=== PATIENT | female | born 1985 | race Caucasian/White ===

== ENCOUNTER → 2020-06-04 14:22 | Outpatient (CLI) | payer OTHER, SELFPAY ==
[2020-06-04 16:55] LABS: HCG Quantitative /Beta subunit 14995 mIU/mL
== END ==
PROVIDERS: Referring Provider Obstetrics & Gynecology; Visit Provider Obstetrics & Gynecology
DX: Z34.90 Encounter for supervision of normal pregnancy, unspecified, unspecified trimester (principal)
CPT/HCPCS: 36415; 84702

== ENCOUNTER → 2020-06-06 16:40 | Outpatient (CLI) | payer OTHER, SELFPAY ==
[2020-06-06 18:27] LABS: HCG Quantitative /Beta subunit 26652 mIU/mL
== END ==
PROVIDERS: Referring Provider Obstetrics & Gynecology; Visit Provider Obstetrics & Gynecology
DX: Z34.90 Encounter for supervision of normal pregnancy, unspecified, unspecified trimester (principal)
CPT/HCPCS: 36415; 84702

== ENCOUNTER → 2020-06-18 14:34 | Outpatient (CLI) | payer OTHER, SELFPAY ==
[2020-06-18 15:23] LABS: Add Manual Diff / Slide Review NO; Basophils Absolute Auto 0 /uL (0-100); Basophils Percent Auto 0.4 % (0-2); Eosinophils Absolute Auto 100 /uL (0-450); Eosinophils Percent Auto 1.4 % (2-4); Hematocrit 39.2 % (36-46); Hemoglobin 13.1 g/dL (12.0-16.0); Lymphocytes Absolute Auto 1400 /uL (1100-4500); Lymphocytes Percent Auto 18.5 % (25-40); Mean Corpuscular HGB Conc 33.4 % (30-36); Mean Corpuscular Hemoglobin 31.6 PG (26-34); Mean Corpuscular Volume 94.7 fL (80-100); Monocytes Absolute Auto 400 /uL (0-900); Monocytes Percent Auto 4.6 % (3-14); Neutrophils Absolute Auto 5700 /uL (1500-7000); Neutrophils Percent Auto 75.1 % (50-75); Platelet Count 152 X10^3/uL (150-400); Red Blood Cell Count 4.14 X10^6/uL (4.0-5.2); Red Cell Distribution Width 13.8 % (11.6-14.8); White Blood Cell Count 7.6 X10^3/uL (4.5-11.0)
[2020-06-18 15:44] LABS: Appearance Urine UA CLEAR; Bilirubin Urine UA NEGATIVE (NEGATIVE); Color Urine UA YELLOW; Glucose Urine UA NEGATIVE (Negative); Ketones Urine UA NEGATIVE (NEGATIVE); Leukocyte Esterase Urine UA NEGATIVE (NEGATIVE); Nitrite Urine UA NEGATIVE (Negative); Occult Blood Urine UA 2+ (Negative); Protein Urine UA NEGATIVE (Negative); Specific Gravity Urine UA 1.025 (1.000-1.035); Urobilinogen Urine UA 0.2 E.U./dL (0.2)
[2020-06-18 15:55] LABS: pH Urine UA 5.5 (4.5-8.0)
[2020-06-18 15:56] LABS: Bacteria Urine None Seen; WBC Urine None Seen (0-5/HPF)
[2020-06-18 16:04] LABS: Culture Indicated Urine Cult Not Indicated; RBC Urine 1-5/HPF (0-5/HPF); Squamous Epithelial Cell Urine 5-10 /HPF (0-5/HPF)
[2020-06-18 16:58] LABS: HIV 1 & 2 Ab/Ag 4th Gen Combo NEGATIVE (NEGATIVE); Hep C Virus Ab w/Reflex Quant NEGATIVE s/c (NEGATIVE); Hepatitis B Surface Antigen NEGATIVE s/c (NEGATIVE); Rubella Antibody IgG 10.7 IU/mL (>15)
[2020-06-19 04:36] LABS: RPR Screen Non Reactive (Non Reactive)
[2020-06-19 08:41] LABS: Varicella IgG Antibody 793 index (Immune >165)
== END ==
PROVIDERS: Referring Provider Obstetrics & Gynecology; Visit Provider Obstetrics & Gynecology
DX: Z34.91 Encounter for supervision of normal pregnancy, unspecified, first trimester (principal)
CPT/HCPCS: 36415; 80055; 81003; 81015; 86787; 86803; 86850; 86900; 86901; 87077; 87086; 87389

== ENCOUNTER → 2020-09-10 15:42 | Outpatient (CLI) | payer OTHER, SELFPAY ==
--- NOTE | 2020-09-10 15:43 | DI.US.S_ITS ---
PROCEDURE: US OB >= 14 WEEKS FETUS INDICATIONS: Anatomy scan OUTSIDE/PRIOR DATING DATA: Last menstrual period (LMP): April 17, 2020. LMP-based estimated date of delivery (KEMI): January 23, 2020. First dating scan (date and location): June 04, 2020. Estimated date of delivery (KEMI) from first dating scan: January 27, 2021. TECHNIQUE: Real-time scanning was performed of the fetus, with image documentation and biometric measurements. Endovaginal scanning: Perform COMPARISON: None. FINDINGS: General: A single living intrauterine gestation is present. Presentation: Breech Placenta: Placental position is anterior, without previa. Amniotic fluid index: 13.4 cm, normal range is 5-24 cm. heart rate: 153 beats per minute. Maternal cervical canal: Closed and 4.9 cm long. Normal lower limit is 2.5 cm. biometrics: Biparietal diameter: 19 weeks 3 days Head circumference: 19 weeks 3 days Abdominal circumference: 20 weeks 2 days Femur length: 20 weeks 3 days Estimated gestational age from initial scan: 20 weeks 1 day. Composite gestational age from present scan: 19 weeks 6 days. Estimated weight and percentile: 340 grams; 50th percentile Measurement variability for biometric dating: +/- 7 days from 14 weeks to 15 weeks 6 days gestation, +/- 10 days from 16 weeks to 21 weeks 6 days gestation, +/- 2 weeks from 22 weeks to 27 weeks 6 days gestation, +/- 3 weeks for 28 weeks gestation or later. weight reference: 4500 g or EFW >90/95% is considered macrosomia or large for gestational age. EFW <10% is small for gestational age. EFW 5% or less is considered intra-uterine growth restriction. Anatomic survey: Neuro: Ventricles are non-dilated at less than 10 mm. Cisterna magna is normal at 3-11 mm. Cerebellum is normal in size and morphology. Nuchal skin fold: Normal at less than 6 mm between 14-21 weeks gestational age. Face: Nose and lips, facial profile are normal. Spine: No evidence for spina bifida. Heart: 4-chambered heart is present, with normal ventricular outflow tracts. Diaphragm: Diaphragm is intact. Stomach: Left-sided stomach is present. Kidneys: No hydronephrosis. Normal is less than 5 mm in 2nd trimester, less than 7 mm in 3rd trimester. Cord: 3-vessel cord has orthotopic insertion. Bladder: Normal in size. Extremities: All 4 extremities identified. IMPRESSION: 1. Single living intrauterine with appropriate interval growth. 2. Normal anatomic survey. Dictated by: Arleth Lee MD, PhD on 09/11/2020 at 15:31 Approved by: Arleth Lee MD, PhD on 09/11/2020 at 15:33
== END ==
PROVIDERS: PCP Physician Assistant; Referring Provider Physician Assistant; Visit Provider Obstetrics & Gynecology
DX: Z34.82 Encounter for supervision of other normal pregnancy, second trimester (principal); Z3A.19 19 weeks gestation of pregnancy
CPT/HCPCS: 76811

== ENCOUNTER → 2020-11-07 11:55 | Outpatient (CLI) | payer OTHER, SELFPAY ==
[2020-11-07 13:58] LABS: Hematocrit 31.8 % (36-46); Hemoglobin 10.4 g/dL (12.0-16.0)
[2020-11-07 14:12] LABS: GTT (PREG) 1 Hour PP 50gm Dose 112 mg/dL (76-139)
== END ==
PROVIDERS: PCP Physician Assistant; Referring Provider Obstetrics & Gynecology; Visit Provider Obstetrics & Gynecology
DX: Z34.82 Encounter for supervision of other normal pregnancy, second trimester (principal); Z3A.26 26 weeks gestation of pregnancy
CPT/HCPCS: 36415; 82950; 85014; 85018

== ENCOUNTER 2020-11-21 01:40 | Outpatient (CLI) | payer OTHER, SELFPAY ==
[2020-11-21 02:47] LABS: Bacteria Urine None Seen; RBC Urine None Seen (0-5/HPF); WBC Urine None Seen (0-5/HPF)
[2020-11-21 02:48] LABS: Appearance Urine UA CLEAR; Bilirubin Urine UA NEGATIVE (NEGATIVE); Color Urine UA YELLOW; Glucose Urine UA NEGATIVE (Negative); Ketones Urine UA NEGATIVE (NEGATIVE); Leukocyte Esterase Urine UA NEGATIVE (NEGATIVE); Nitrite Urine UA NEGATIVE (Negative); Occult Blood Urine UA TRACE-LYSED (Negative); Protein Urine UA NEGATIVE (Negative); Urobilinogen Urine UA 0.2 E.U./dL (0.2)
[2020-11-21 02:51] LABS: pH Urine UA 6.5 (4.5-8.0)
[2020-11-21 02:58] LABS: Culture Indicated Urine Cult Not Indicated; Squamous Epithelial Cell Urine 0-1 /HPF (0-5/HPF)
== END 2020-11-21 02:40 | disposition home or self-care (01) ==
LOC: OB 11-22 11:53
PROVIDERS: PCP Physician Assistant; Referring Provider Obstetrics & Gynecology; Visit Provider Family Medicine
DX: Z34.83 Encounter for supervision of other normal pregnancy, third trimester (principal); Z3A.30 30 weeks gestation of pregnancy
CPT/HCPCS: 59025; 81001; G0378; G0379

== ENCOUNTER → 2021-01-03 17:22 | Outpatient (CLI) | payer OTHER, SELFPAY ==
[2021-01-04 16:01] LABS: Strep Grp B PCR POS for Grp B Strep
== END ==
PROVIDERS: PCP Physician Assistant; Visit Provider Obstetrics & Gynecology
DX: Z34.83 Encounter for supervision of other normal pregnancy, third trimester (principal)
CPT/HCPCS: 87653

== ENCOUNTER → 2021-01-21 17:03 | Outpatient (CLI) | payer OTHER, SELFPAY ==
[2021-01-21 18:29] LABS: COVID19 -Nasal RAPID Negative (Negative)
== END ==
PROVIDERS: PCP Physician Assistant; Visit Provider Obstetrics & Gynecology
DX: Z01.812 Encounter for preprocedural laboratory examination (principal); Z20.822 Contact with and (suspected) exposure to COVID-19
CPT/HCPCS: 87635

== ENCOUNTER 2021-01-21 17:11 | Outpatient (CLI) | payer OTHER, SELFPAY | END 2021-01-21 17:54 | disposition home or self-care (01) | LOC: OB 01-22 08:28 | PROVIDERS: PCP Physician Assistant; Referring Provider Obstetrics & Gynecology; Visit Provider Obstetrics & Gynecology | DX: O26.893 Other specified pregnancy related conditions, third trimester (principal); N89.8 Other specified noninflammatory disorders of vagina; Z3A.39 39 weeks gestation of pregnancy; Z20.822 Contact with and (suspected) exposure to COVID-19 | CPT/HCPCS: 59025; 84112; 87635; G0378; G0379 ==

== ENCOUNTER 2021-01-23 07:07 | Inpatient (IN) | payer OTHER, SELFPAY ==
[2021-01-23 08:07] LABS: Add Manual Diff / Slide Review NO; Basophils Absolute Auto 0 /uL (0-100); Basophils Percent Auto 0.4 % (0-2); Eosinophils Absolute Auto 100 /uL (0-450); Eosinophils Percent Auto 0.8 % (2-4); Hematocrit 37.2 % (36-46); Hemoglobin 12.4 g/dL (12.0-16.0); Lymphocytes Absolute Auto 1800 /uL (1100-4500); Lymphocytes Percent Auto 20.2 % (25-40); Mean Corpuscular HGB Conc 33.3 % (30-36); Mean Corpuscular Hemoglobin 31.8 PG (26-34); Mean Corpuscular Volume 95.5 fL (80-100); Monocytes Absolute Auto 600 /uL (0-900); Neutrophils Absolute Auto 6400 /uL (1500-7000); Neutrophils Percent Auto 71.6 % (50-75); Platelet Count 129 X10^3/uL (150-400); Red Blood Cell Count 3.89 X10^6/uL (4.0-5.2); Red Cell Distribution Width 16.8 % (11.6-14.8); White Blood Cell Count 8.9 X10^3/uL (4.5-11.0)
[2021-01-23] MEDS: PENICILLIN G POTASSIUM 5,000,000 UNIT in DEXTROSE 5% IN WATER 250 ML IV (08:17)
[2021-01-23] MEDS: OXYTOCIN PREMIX 30 UNIT/500 ML PLAST..BAG IV (08:18)
[2021-01-23 09:49] VITALS: BP 108/80; PULSE 89; RESP 16; TEMP 36.2
--- NOTE | 2021-01-23 10:55 | PM.AN.REGBLK ---
Regional Block Pre-procedure Procedure: Continuous Lumbar Epidural for L&D Attending OB provider: Shiela Lacy PMH/ROS narrative: term labor/induction. No complications. Hx: No personal or family history of anesthesia problems. ASA Class: II Labs: Hct 37.2 % (36-46) 01/23/21 07:42 Plt Count 129 X10^3/uL (150-400) L 01/23/21 07:42 Medications: Current Medications Generic Name Dose Route Start Last Admin Trade Name Freq PRN Reason Stop Dose Admin Calcium Carbonate 1,000 mg 01/23/21 07:49 Calcium Carbonate 500 Mg Tab PO Q2HR PRN Dyspepsia Carboprost Tromethamine 250 mcg 01/23/21 07:49 Carboprost 250 Mcg/Ml Ampul IM Q90M PRN Bleeding Diphenhydramine HCl 25 mg 01/23/21 09:23 Diphenhydramine 50 Mg/Ml Vial IV Q10M PRN Pruritis Fentanyl 50 mcg 01/23/21 07:49 Fentanyl 100 Mcg/2 Ml Inj IV Q1H PRN Pain, Moderate (4-6) Oxytocin/Lactated Ringer's 30 unit in 500 mls @ 200 mls/hr 01/23/21 07:49 Oxytocin Premix IV CONT PRN Bleeding Protocol Oxytocin/Lactated Ringer's 30 unit in 500 mls @ 3 mls/hr 01/23/21 08:00 01/23/21 08:18 Oxytocin Premix IV 3 milliunit/min TITRATE SILVER 3 mls/hr Administration Protocol 3 MILLIUNIT/MIN Tranexamic Acid 1,000 mg/ 100 mls @ 400 mls/hr 01/23/21 07:49 Sodium Chloride IV 01/24/21 23:59 NOW PRN Bleeding Lactated Ringer's 1,000 mls @ 100 mls/hr 01/23/21 08:00 Lactated Ringers IV CONT SILVER Penicillin G Potassium 3,000,000 unit in 50 mls @ 100 mls/hr 01/23/21 12:00 Penicillin G Potassium IV Q4H SILVER FENT 2MCG/ML BUPIV 0.125% EPI 200 mcg in 100 mls @ 6 mls/hr 01/23/21 09:30 Fentanyl/Bupiv/Ns 2mcg/Ml - 0.125% EPIDURAL CONT SILVER Methylergonovine Maleate 0.2 mg 01/23/21 07:49 Methylergonovine 0.2 Mg Tablet PO Q6HR PRN Heavy Bleeding Methylergonovine Maleate 0.2 mg 01/23/21 07:49 Methylergonovine 0.2 Mg/Ml Vial IM NOW PRN Bleeding Metoclopramide HCl 10 mg 01/23/21 07:49 Metoclopramide 10 Mg/2 Ml Inj IV NOW PRN Nausea And Vomiting Misoprostol 400 mcg 01/23/21 07:49 Misoprostol 200 Mcg Tablet SL NOW PRN Bleeding Misoprostol 1,000 mcg 01/23/21 07:49 Misoprostol 200 Mcg Tablet OH NOW PRN Bleeding Misoprostol 800 mcg 01/23/21 07:49 Misoprostol 200 Mcg Tablet OH NOW PRN Bleeding Naloxone HCl 0.2 mg 01/23/21 07:49 Naloxone 0.4 Mg/Ml Vial IV Q2MIN PRN Opiate Reversal Ondansetron HCl 4 mg 01/23/21 07:49 Ondansetron 4 Mg/2 Ml Inj IV Q4HR PRN Nausea And Vomiting Oxytocin 10 unit 01/23/21 07:49 Oxytocin 10 Unit/Ml Vial IM NOW PRN Bleeding Allergies: Allergies Allergy/AdvReac Type Severity Reaction Status Date / Time No Known Drug Allergies Allergy Verified 01/21/21 16:23 Procedure Insertion date: 01/23/21 Insertion time: 10:40 Prep/Local: betadine x3 Interspace: L3-4 Patient position: sitting Needle: 18 gauge [employer] [place] (CSE: 27g Pencan through [place], clear CSF, 2mg MPF bupiv) Loss of resistance with: saline KYM at (cm): 4 Catheter placed at SKIN (cm): 9 Catheter in SPACE (cm): 5 Insertion: No CSF, No Blood, No Paresthesia with insertion, No Paresthesia with injection and No Test dose reaction Initial Medications TEST DOSE time: 10:40 TEST DOSE: 1.5% lidocaine with epinephrine 1:200k (mL): 3 Infusion INFUSION: 0.125% bupivacaine and with fentanyl 2 mcg/mL Initial rate (mL/hr): 6 Subsequent interventions: 5mL 0.25% bupiv and 50mcg fentanyl at approx 17:30 18:30 Post-procedure Anesthesia time START: 10:29 Anesthesia time END: 18:28 Post-procedure Anesthesia Assessment: Yes CV function: HR/BP stable, Yes Resp function: RR/sat/airway adequate, Yes Post-op hydration adequate, Yes Pain control adequate, Yes Nausea & vomiting absent, Yes Mental status appropriate and No Anesthesia complications
[2021-01-23] MEDS: LACTATED RINGERS 1,000 ML 100 ML IV (11:02)
[2021-01-23] MEDS: PENICILLIN G POTASSIUM 3,000,000 UNIT/50 ML FROZ.PIGGY 100 UNIT IV ×2 (11:45→15:51)
[2021-01-23] MEDS: ONDANSETRON 4 MG/2 ML INJ IV (13:20)
--- NOTE | 2021-01-23 18:57 | PM.OBHP.1 ---
OB HPI Date/Time Date of admission: 01/23/21 Date Patient Seen: 01/23/21 Time Patient Seen: 07:30 History of Present Condition Chief complaint: INDUCTION : 3 Para: 2 Estimated Date of Delivery: 01/30/21 Estimated Gestational Age (weeks): 39 Narrative: Shabana Cueto is a 35 year old female 3 para 2 at 39 weeks gestation for induction of labor History of Present care: good care, initiated at week # (7), number of visits (12) and pounds weight gain (52) Dating criteria: LMP confirmed by 1st trimester US Ultrasounds: normal 1st trimester US and normal mid trimester US Obstetrical complications: none Medical complications: none Preadmission Labs Blood type: O (+) positive -: Antibody screen: negative, GBS status: positive, HBsAG: negative, HIV: negative and RPR/VDLR: negative -: Chlamydia screen: not detected and Gonorrhea screen: not detected -: Rubella: not immune and Varicella: immune HCT: 37.2 HCAB: negative PAP: Normal Urine: Negative 1 hr GTT: 112 Prior (ies) History: 3 Evaluation Evaluation Baseline heart rate: 135 Variability: Moderate (11-25) monitor accelerations: Present monitor decelerations: Absent Cervical dilation (cm): 2 Cervical effacement (%): 80 station: -1 Laboratory results: Laboratory Tests 01/23/21 01/23/21 07:42 07:42 WBC 8.9 RBC 3.89 L Hgb 12.4 Hct 37.2 MCV 95.5 MCH 31.8 MCHC 33.3 RDW 16.8 H Plt Count 129 L Neut % (Auto) 71.6 Lymph % (Auto) 20.2 L [place] % (Auto) 7.0 Eos % (Auto) 0.8 L Baso % (Auto) 0.4 Neut # (Auto) 6400 Lymph # (Auto) 1800 [place] # (Auto) 600 Eos # (Auto) 100 Baso # (Auto) 0 Blood Type O Positive Antibody Screen Negative [facility] Medical History (Updated 08/14/20 @ 17:49 by Shiela Lacy MD) Acne (~2001) Breast lump Cholecystitis, acute (~2017) Migraines (~2005) (spontaneous vaginal delivery) (~06/17/16) (spontaneous vaginal delivery) (~05/31/18) Surgical History (Updated 06/11/20 @ 15:26 by Morena Waite RN) Anesthesia H/O laparoscopy (~2014) H/O local excision of skin lesion (~07/26/15) [place] teeth extracted (~2007) Family History (Updated 06/11/20 @ 15:07 by Morena Waite, ELIZABETH) Father Asthma Sleep apnea Hyperlipidemia Prediabetes Ulcerative colitis Mother Migraines Brother Asthma Allergies Grandmother Breast cancer Mental health problem Depression Alzheimer's disease Grandfather Hyperlipidemia Grandmother Hyperlipidemia Stroke Myocardial infarction Grandfather Psoriasis Brother No known health problems Family/Other Breast cancer Social History marital status: number of children: 2 household members: spouse and children pets and animals: Yes (X 2 small dogs) education level: college occupational status: unemployed current occupational exposures/hazards: No ashley/tenriism: Faith special ashlye needs: No Smoking Status: Never smoker second hand exposure: No alcohol intake: former substance use type: does not use Meds Home Medications and Allergies Home Medications Medication Instructions Recorded Confirmed Type ascorbic acid (vitamin C) 500 mg 500 mg PO DAILY 06/11/20 01/23/21 History capsule prenat.vits,deya,top-pvti-fhkzr 1 tab PO DAILY 06/11/20 01/23/21 History fluconazole 150 mg tablet 150 mg PO Q3D #2 tab 06/20/20 01/23/21 Rx Allergies Allergy/AdvReac Type Severity Reaction Status Date / Time No Known Drug Allergies Allergy Verified 01/21/21 16:23 Exam Vital Signs (past 8 hours): Generally: No acute distress Lungs: Clear to auscultation bilaterally Cardiovascular: Regular rate and rhythm Fundal height: 39 cm Estimated weight: 8 lb Extremities: No edema, 1+ DTRs Objective Labs Result Diagrams: 01/23/21 07:42 Labs: Laboratory Results - last 24 hr 01/23/21 01/23/21 07:42 07:42 WBC 8.9 RBC 3.89 L Hgb 12.4 Hct 37.2 MCV 95.5 MCH 31.8 MCHC 33.3 RDW 16.8 H Plt Count 129 L Neut % (Auto) 71.6 Lymph % (Auto) 20.2 L [place] % (Auto) 7.0 Eos % (Auto) 0.8 L Baso % (Auto) 0.4 Neut # (Auto) 6400 Lymph # (Auto) 1800 [place] # (Auto) 600 Eos # (Auto) 100 Baso # (Auto) 0 Blood Type O Positive Antibody Screen Negative Assessment and Plan Assessment and Plan Assessment and Plan narrative: Assessment: 35-year-old 3 para 2 at 39 weeks gestation for induction of labor GBS positive Plan: Pitocin per protocol 2 Epidural as necessary Artificial rupture membranes when able Time Spent with Patient Total time spent with greater than 50% in coordination of care (as documented) at patient's floor/unit and/or counseling patient:: 15-24 minutes
--- NOTE | 2021-01-23 19:02 | PM.OBPNLAB ---
Date/Time Date Patient Seen: 01/23/21 Time Patient Seen: 13:30 Pain Control Pain control: tolerating well and epidural Pelvic Exam Dilation (cm): 5 Effacement (%): 95 station: 0 Amniotic membrane status: Bulging Contractions Contractions on admission: regular Monitor mode: External Pitocin rate (mU/min): 10 Contraction frequency (min): 3 Contraction duration (min): 1 Contraction pattern: Regular Contraction intensity: Strong/Firm Status status: Category l Heart Rate Baseline: 135 Monitor Accelerations: Present Monitor Decelerations: Absent Monitor Variability: Moderate Assessment and Plan Assessment: induction ongoing Plan: continuous present management Comments: Artificial rupture membranes with clear amniotic fluid
--- NOTE | 2021-01-23 19:04 | PM.OBPRVD ---
Events: Labor Induction Labor & Delivery Delivery date: 01/23/21 Intrapartal Events: None Cervical ripening method: none Induction method: per pitocin protocol Delivery augmentation: rupture of membranes Delivery monitor: external FHT and external uterine Route of delivery: Episiotomy description: None L&D Laceration Description: Superficial (introitus) Delivery repair: chromic Estimated blood loss (mL): 150 Anesthesia Type: Epidural Complications: None Narrative: Patient complete and pushed for 21 minutes. At 6:28 p.m., a live female delivered spontaneously in the JOSSELYN presentation. There was a mild shoulder dystocia that was relieved with placing the patient flat and Jeff maneuver. The was placed on mom's abdomen. After the cord stopped pulsing, the cord was double clamped and cut. Cord bloods were obtained. The placenta delivered intact with a three-vessel cord at 6:40 p.m.. Pitocin was given in the IV fluids and run at 220 cc an hour. Fundus was massaged to firm. There was a superficial laceration at the introitus that was repaired with 4-0 chromic. Hemostasis was achieved. Apgars 8 at 1 minute and 9 at 5 minutes. . Epidural analgesia. Mom and stable to recovery. Baby 1: gender: Female Presentation: vertex Position: Left Occiput Anterior Placenta delivery description: Spontaneous and Normal Configuration Cord Vessel Description: 3 Vessels score (1 min): 8 score (5 min): 9 Plan for aftercare: Routine care
[2021-01-23] MEDS: LANOLIN OINT 7 GM 1 APPLIC TOP (19:55)
[2021-01-23] MEDS: DERMOPLAST SPRAY 20% 60 ML 1 SPRAY TOP (19:55)
[2021-01-23] MEDS: IBUPROFEN 600 MG TABLET PO (19:56)
[2021-01-23 22:21] VITALS: BP 104/61
[2021-01-24] MEDS: IBUPROFEN 600 MG TABLET PO ×3 (01:57→13:56)
[2021-01-24 06:51] LABS: Hematocrit 36.6 % (36-46); Hemoglobin 12.2 g/dL (12.0-16.0)
[2021-01-24] MEDS: ACETAMINOPHEN 325 MG TABLET 650 MG PO ×2 (09:14→17:22)
[2021-01-24] MEDS: PRENATAL VIT,CALC/IRON/FOLIC 1 TABLET 1 TAB PO (09:15)
[2021-01-24] MEDS: DOCUSATE 100 MG CAPSULE PO (09:15)
--- NOTE | 2021-01-25 13:52 | P.DS_ITS ---
History of Present Illness History of Present Illness Date Patient Seen: 01/24/21 Time Patient Seen: 13:30 Chief complaint: INDUCTION Narrative: Patient is a 35-year-old 3 para 3 day # 1 status post spontaneous vaginal delivery. Discharge Providers Provider Date of admission: 01/23/21 07:07 Discharge Date: 01/24/21 Primary care physician: Ijeoma Barrios PA-C Discharge provider: Shiela Lacy MD Summary Hospital Course Discharge Diagnosis: Thirty-nine weeks gestation Induction of labor Spontaneous vaginal delivery Epidural analgesia Hospital Course: Patient is a 35-year-old 3 para 3 who presented on January 23, 2021 for scheduled induction of labor. She was started on Pitocin. Artificial rupture membranes was performed. She received an epidural for pain management. She had a spontaneous vaginal delivery with a mild shoulder dystocia. Since her course was unremarkable. She is discharged home on day # 1. Status at Discharge Cognitive/behavioral status at discharge: oriented Functional status at discharge: independent ambulation Overall status at discharge: patient is progressing back to baseline Time Spent with Patient Time spent: Less than 30 minutes Exam Vital Signs (past 8 hours): Generally: Patient is sitting up in bed, nursing infant, no acute distress Fundus: Firm at U -1 Extremities: No edema, negative Homans Objective Labs Result Diagrams: 01/24/21 06:32 [facility] Medical History (Updated 08/14/20 @ 17:49 by Shiela Lacy MD) Acne (~2001) Breast lump Cholecystitis, acute (~2017) Migraines (~2005) (spontaneous vaginal delivery) (~04/18/16) (spontaneous vaginal delivery) (~05/31/18) Surgical History (Updated 06/11/20 @ 15:26 by Morena Waite, ELIZABETH) Anesthesia H/O laparoscopy (~2014) H/O local excision of skin lesion (~07/26/15) [place] teeth extracted (~2007) Family History (Updated 06/11/20 @ 15:07 by Morena Waite, ELIZABETH) Father Asthma Sleep apnea Hyperlipidemia Prediabetes Ulcerative colitis Mother Migraines Brother Asthma Allergies Grandmother Breast cancer Mental health problem Depression Alzheimer's disease Grandfather Hyperlipidemia Grandmother Hyperlipidemia Stroke Myocardial infarction Grandfather Psoriasis Brother No known health problems Family/Other Breast cancer Social History marital status: number of children: 2 household members: spouse and children pets and animals: Yes (X 2 small dogs) education level: college occupational status: unemployed current occupational exposures/hazards: No ashley/congregation: Taoist special ashley needs: No Smoking Status: Never smoker second hand exposure: No alcohol intake: former substance use type: does not use Discharge Assessment & Plan Assessment and Plan Assessment: day # 1 status post spontaneous vaginal delivery, doing very well Plan of Treatment: Discharge to home Follow-up in 6 weeks Discharge Plan Discharge Plan Patient Disposition: Home Provider Discharge Comment: Call with fever, chills, or bleeding vaginally more than a pad in an hour Ibuprofen 600 mg every 6 hours as needed for cramping Discharge orders & Medications Prescriptions: Continued ascorbic acid (vitamin C) 500 mg capsule 500 mg PO DAILY RF: 0 prenat.vits,deya,dcr-ceje-varlv Tablet 1 tab PO DAILY RF: 0 Discontinued fluconazole [Diflucan] 150 mg tablet 150 mg PO Q3D Qty: 2 RF: 0 Follow up/Referrals: Shiela Lacy MD [Physician] - 6 Weeks (Appointment on at 10:00 am with .) Diet/Activity/Treatments Diet: Regular Activity: No intercourse Skin/Wound/Dressing Care Report to your healthcare provider any signs of infection, such as:: chills, fever, increased pain and unusual drainage Visit Report/Discharge Packet Instructions: DI for Labor and Delivery, Vaginal Discharge Data Primary Care Provider: Ijeoma Barrios
== END 2021-01-24 18:00 | disposition home or self-care (01) | DRG 807 ==
PROVIDERS: Admitting Provider Obstetrics & Gynecology; PCP Physician Assistant; Referring Provider Obstetrics & Gynecology; Visit Provider Obstetrics & Gynecology
DX: O99.824 Streptococcus B carrier state complicating childbirth (principal); Z37.0 Single live birth; Z3A.39 39 weeks gestation of pregnancy; O70.0 First degree perineal laceration during delivery; O66.0 Obstructed labor due to shoulder dystocia
CPT/HCPCS: 01967; 36415; 59050; 59400; 85014; 85018; 85025; 86850; 86900; 86901; G0379; J2405; J2540; J2590

== ENCOUNTER 2021-01-27 01:28 | Emergency (ER) | payer OTHER, SELFPAY ==
[2021-01-27 01:41] VITALS: BP 134/74; PULSE 107; RESP 18; TEMP 36.9; O2SAT 97; BMI 25.6
[2021-01-27 02:13] LABS: Bacteria Urine None Seen; WBC Urine None Seen (0-5/HPF)
[2021-01-27 02:26] LABS: Culture Indicated Urine Cult Not Indicated; RBC Urine 5-10/HPF (0-5/HPF); Squamous Epithelial Cell Urine 0-1 /HPF (0-5/HPF)
--- NOTE | 2021-01-27 03:00 | ED.EXTPRO ---
HPI - Extremity Problem General Chief complaint: Extremity Problem,Nontraumatic Stated complaint: left leg swelling/pain had baby 3 days ago Time Seen by Provider: 01/27/21 03:00 Source: patient Mode of arrival: Ambulatory Limitations: no limitations History of Present Illness HPI Narrative: 35-year-old woman 3 days post vaginal delivery presents with lower extremity swelling and pain into her left thigh. She contact her primary care physician who recommended that she come in for further evaluation with concerns for DVT. On arrival, swelling is bilateral and the pain in her leg is anterior lateral left thigh much more consistent with radicular leg pain or pain that could be exacerbated by excessive external rotation of the hip during labor with an epidural in place. She is otherwise feeling well, no headaches, no dysuria, no abdominal pain, no chest pain, no palpitations. She notes that she is still having mild amount of lochia and is going well. Related Data Home Medications Medication Instructions Recorded Confirmed ascorbic acid (vitamin C) 500 mg 500 mg PO DAILY 06/11/20 01/23/21 capsule prenat.vits,deya,[id number] 1 tab PO DAILY 06/11/20 01/23/21 Allergies Allergy/AdvReac Type Severity Reaction Status Date / Time No Known Drug Allergies Allergy Verified 01/21/21 16:23 Review of Systems Review of Systems ROS Unobtainable: All systems reviewed & are unremarkable except as noted in HPI and below Patient History Medical History Acne (~2001) Breast lump Cholecystitis, acute (~2017) Migraines (~2005) (spontaneous vaginal delivery) (~04/18/16) (spontaneous vaginal delivery) (~05/31/18) Surgical History Anesthesia H/O laparoscopy (~2014) H/O local excision of skin lesion (~07/26/15) [place] teeth extracted (~2007) Family History Father Asthma Sleep apnea Hyperlipidemia Prediabetes Ulcerative colitis Mother Migraines Brother Asthma Allergies Grandmother Breast cancer Mental health problem Depression Alzheimer's disease Grandfather Hyperlipidemia Grandmother Hyperlipidemia Stroke Myocardial infarction Grandfather Psoriasis Brother No known health problems Family/Other Breast cancer Social History marital status: number of children: 2 household members: spouse and children pets and animals: Yes (X 2 small dogs) education level: college occupational status: unemployed current occupational exposures/hazards: No ashley/anabaptism: Gnosticism special ashley needs: No Smoking Status: Never smoker second hand exposure: No alcohol intake: former substance use type: does not use Smoking Status: Never smoker alcohol intake frequency: 0-2 drinks per day Substance Use Type: does not use Exam Narrative Exam Narrative: General: Healthy appearing, in no acute distress. Able to give a complete and coherent history. Well-nourished well-developed Respiratory: Lungs are clear to auscultation, no wheezing no rales no rhonchi. Full and symmetrical air movement Cardiac: Regular rate and rhythm no murmurs no bruits Abdomen: Soft, fundus just under the umbilicus, nontender, good bowel tones, no flank pain Skin: Warm and dry, no rashes Neurologic: Grossly neurologically intact with no obvious asymmetries or abnormalities, 3+ reflexes in lower extremities without clonus Extremities: No trauma, well perfused, 1+ bilateral lower extremity edema Psych: Cooperative, appropriate insight and affect Initial Vital Signs Initial Vital Signs: Vital Signs Temperature 98.4 F 01/27/21 01:41 Pulse Rate 107 H 01/27/21 01:41 Respiratory Rate 18 01/27/21 01:41 Blood Pressure 134/74 01/27/21 01:41 Pulse Oximetry 97 01/27/21 01:41 Course Orders Ordered: ED Orders 01/27/21 01:55 Urine Microscopic Stat 01/27/21 03:40 Complete Blood Count AUTO DIFF Stat Comprehensive Metabolic Panel Stat Vital Signs Vital signs: Vital Signs - 8 hr 01/27/21 01:41 01/27/21 04:26 Temperature 98.4 F Pulse Rate 107 H 79 Respiratory Rate 18 Blood Pressure 134/74 Pulse Oximetry 97 100 MDM - Extremity (Nontraumatic) Lab Data Result diagrams: 01/27/21 03:40 01/27/21 03:40 Labs: Lab Results 01/27/21 01/27/21 01/27/21 Range/Units 01:55 03:40 03:40 WBC 8.8 (4.5-11.0) X10^3/uL RBC 4.13 (4.0-5.2) X10^6/uL Hgb 12.8 (12.0-16.0) g/dL Hct 39.7 (36-46) % MCV 96.0 (80-100) fL MCH 31.0 (26-34) PG MCHC 32.3 (30-36) % RDW 16.9 H (11.6-14.8) % Plt Count 142 L (150-400) X10^3/uL Neut % (Auto) 72.4 (50-75) % Lymph % (Auto) 19.9 L (25-40) % Taylor % (Auto) 5.1 (3-14) % Eos % (Auto) 1.7 L (2-4) % Baso % (Auto) 0.9 (0-2) % Neut # (Auto) 6400 (2155-2484) /uL Lymph # (Auto) 1700 (5260-7720) /uL Taylor # (Auto) 500 (0-900) /uL Eos # (Auto) 200 (0-450) /uL Baso # (Auto) 100 (0-100) /uL Sodium 137 (137-145) mmol/L Potassium 4.0 (3.4-5.1) mmol/L Chloride 105 (98-107) mmol/L Carbon Dioxide 27 (22-32) mmol/L BUN 14 (7-17) mg/dL Creatinine 0.42 L (0.52-1.04) mg/dL Estimated GFR > 60.0 (>60) mL/min BUN/Creatinine Ratio 33.3 H (6-22) Glucose 94 (70-100) mg/dL Calcium 9.3 (8.4-10.2) mg/dL Total Bilirubin 0.2 (0.2-1.3) mg/dL AST 32 (14-36) IU/L ALT 25 (<35) IU/L Alkaline Phosphatase 108 (38-126) U/L Total Protein 6.5 (6.3-8.2) g/dL Albumin 3.6 (3.5-5.0) g/dL Globulin 2.9 (1.7-4.1) g/dL Albumin/Globulin Ratio 1.2 (1.0-2.8) Urine RBC 5-10/hpf H (0-5/HPF) Urine WBC None seen (0-5/HPF) Ur Squamous Epith Cells 0-1 /hpf (0-5/HPF) Urine Bacteria None seen (None) Ur Culture Indicated? Cult not indicated Urine Dip Bedside Urine Glucose Negative Bedside Urine Bilirubin - Negative Bedside Urine Ketone - Negative Urine Specific [place] 1.020 Bedside Urine Occult Blood +++ Bedside Urine pH 6.5 Bedside Urine Protein - Negative Bedside Urine Urobilinogen - Negative Bedside Urine Nitrite - Negative Bedside Urine Leukocytes - Negative Esterase MDM Narrative Medical decision making narrative: 35-year-old woman presents with edema that is bilateral that does not suggest DVT. I said suspect that this is fluid shifts along with excessive ibuprofen in the last 3 days. Discussed using compression socks and decreasing ibuprofen She also complains of pain into her left thigh without other neurologic findings or specific edema. I suspect that this is related to leg in hip positioning while she was in labor with an epidural in place and likely will resolve within the next week or so. Blood pressure was slightly elevated so labs and urine were checked to make sure there is no evidence of preeclampsia or HELLP syndrome and there is not. She is safe for home discharge Discharge Plan Departure Patient Disposition: Home Clinical Impression: Radicular low back pain Edema Qualifiers: Edema type: unspecified Qualified Code(s): R60.9 - Edema, unspecified Activity Restrictions/Additional Instructions: Thank you for coming in today Your having swelling in both of your legs and I suspect that this is related to the higher doses of ibuprofen you been taking after delivery as well as some of the fluid shifts that are common with . If you are able to switch to just Tylenol, you may find that the swelling goes down rather quickly The pain that your experiencing in your left thigh is likely related to positioning while you were pushing with an epidural in place. Not only was the epidural physically in a place that could be somewhat irritating to the nerve but with decreased sensation, you are able to move your legs hips and thighs during labor in a way that you would not typically do without an epidural. Your blood pressure was slightly elevated at 134/74 on arrival in the emergency department. Your blood work and urine were entirely normal with no suggestion of preeclampsia. I would expect all of these symptoms to improve significantly within the next week or so. Prescriptions: No Action ascorbic acid (vitamin C) 500 mg capsule 500 mg PO DAILY RF: 0 prenat.vits,deya,cjf-dmfx-rfiso Tablet 1 tab PO DAILY RF: 0 Referrals: Ijeoma Barrios PA-C [Primary Care Provider] -
[2021-01-27 03:50] LABS: Add Manual Diff / Slide Review NO; Basophils Absolute Auto 100 /uL (0-100); Basophils Percent Auto 0.9 % (0-2); Eosinophils Absolute Auto 200 /uL (0-450); Eosinophils Percent Auto 1.7 % (2-4); Hematocrit 39.7 % (36-46); Hemoglobin 12.8 g/dL (12.0-16.0); Lymphocytes Absolute Auto 1700 /uL (1100-4500); Lymphocytes Percent Auto 19.9 % (25-40); Mean Corpuscular HGB Conc 32.3 % (30-36); Monocytes Absolute Auto 500 /uL (0-900); Monocytes Percent Auto 5.1 % (3-14); Neutrophils Absolute Auto 6400 /uL (1500-7000); Neutrophils Percent Auto 72.4 % (50-75); Platelet Count 142 X10^3/uL (150-400); Red Blood Cell Count 4.13 X10^6/uL (4.0-5.2); Red Cell Distribution Width 16.9 % (11.6-14.8); White Blood Cell Count 8.8 X10^3/uL (4.5-11.0)
[2021-01-27 03:56] LABS: Alanine Aminotransferase 25 IU/L (<35); Albumin 3.6 g/dL (3.5-5.0); Albumin Globulin Ratio 1.2 (1.0-2.8); Alkaline Phosphatase 108 U/L (38-126); Aspartate Aminotransferase 32 IU/L (14-36); BUN Creatinine Ratio 33.3 (6-22); Bilirubin Total 0.2 mg/dL (0.2-1.3); Blood Urea Nitrogen 14 mg/dL (7-17); Calcium 9.3 mg/dL (8.4-10.2); Carbon Dioxide 27 mmol/L (22-32); Chloride 105 mmol/L (98-107); Estimated Glomerular Filt Rate > 60.0 mL/min (>60); Globulin 2.9 g/dL (1.7-4.1); Glucose 94 mg/dL (70-100); HEMOLYSIS < 15 (0-50); Sodium 137 mmol/L (137-145); Total Protein 6.5 g/dL (6.3-8.2)
[2021-01-27 04:26] VITALS: PULSE 79; O2SAT 100
== END 2021-01-27 04:27 | disposition home or self-care (01) ==
PROVIDERS: Emergency Provider Emergency Medicine; PCP Physician Assistant
DX: O90.89 Other complications of the puerperium, not elsewhere classified (principal); R60.9 Edema, unspecified; M54.16 Radiculopathy, lumbar region
CPT/HCPCS: 80053; 81003; 81015; 85025; 99281; 99282